=== PATIENT | female | born 1980 | race Caucasian/White ===

== ENCOUNTER → 2018-06-19 | Outpatient (CLI) | payer OTHER, MEDICARE | LOC: SLEEP 19:30 | PROVIDERS: ATTEND Family Medicine | DX: G47.33 Obstructive sleep apnea (adult) (pediatric) (principal) ==

== ENCOUNTER → 2018-08-30 | Outpatient (CLI) | payer OTHER, MEDICARE ==
--- NOTE | 2018-09-12 22:56 | Polysomnography ---
DATE OF STUDY: August 30, 2018 PHYSICIAN CANCELED. JOSE MIGUEL Certified in Sleep Medicine Job#: [id number] GE
--- NOTE | 2018-09-23 01:16 | Polysomnography ---
DATE OF STUDY: August 30, 2018 SPLIT-NIGHT POLYSOMNOGRAM REFERRING PHYSICIAN: Dr. Gadiel Turner HISTORY: This is a 38-year-old female with excessive daytime sleepiness and witnessed apneas. Patient has past medical history of diabetes, hyperlipidemia, schizophrenia, bipolar disorder, COPD, lumbar disk herniation, migraines, CKD. CURRENT MEDICATIONS: Quetiapine, bupropion, clonazepam, montelukast, Lasix, atorvastatin, topiramate, lamotrigine, Zanaflex, Tresiba. BMI is 53.3. [place] Sleepiness Scale score is 19. The patient presents for a diagnostic polysomnogram that is splint into a titration polysomnogram. FINDINGS: Polysomnogram revealed total sleep time of 144.5 minutes with sleep efficiency of 95.1% during diagnostic half of this study. Sleep onset latency was achieved in 6 minutes. REM sleep was not studied during diagnostic half, but stage N1, N2, and N3 were all present. The patient had intermittent snoring that was noted. The near entirety of diagnostic portion of this study was in the side position. A total of 63 hypopneas and 1 mixed apnea and 101 obstructive apneas were noted for an apnea-hypopnea index of 68.5 events per hour. The lowest oxygen saturation during this half was 52%. This study was split soon after discovering severe obstructive sleep apnea-hypopnea syndrome. CPAP was initiated at 4 cm of water pressure and incrementally increased to 13 cm of water pressure by 1 cm at a time. Due to patient intolerance of the higher CPAP pressure and due to arousals suspected to be respiratory related, BiPAP was initiated at 14/10 cm of water and incrementally increased to 18 cm of IPAP and 13 cm of EPAP delivered using a ResMed AirFit F10 full-face mask medium size, with heated humidifier. Sleep apnea was optimally treated at the final pressure setting of 18 cm of IPAP and 13 cm of EPAP where the apnea-hypopnea index was 0 events per hour and the lowest oxygen saturation was 91%. Of note, this was an excellent supine titration. REM sleep was studied on the pressure of 15/10 cm of water with very few events that did not destroy the consolidated sleep EEG. Towards the end of this night, some undulating pulse oximetry waveforms were noted with low normal saturations, but the sleep EEG construct was intact. Some periodic leg movements in sleep were also noted, but many of these appeared to be respiratory event-related limb movements. Single-lead EKG analysis demonstrated sinus rhythm mostly in the 80s, but was otherwise unremarkable. INTERPRETATION: This was an abnormal polysomnogram/split study due to presence of: 1. Severe obstructive sleep apnea. This is supported by oxygen desaturations, snoring, and increased apnea-hypopnea index. Multiple factors can be contributory such as obesity, thyroid disease, and structural/obstructive abnormalities in the upper airway. An evaluation and management of these factors associated with sleep apnea would be beneficial. 2. Positive airway pressure titration. This study included CPAP and BiPAP titration. The patient's sleep fragmentation, apneas, and desaturations greatly improved and thus a more consolidated sleep was achieved using BiPAP. We recommend BiPAP at an IPAP pressure of 18 cm of water and an EPAP pressure of 13 cm of water delivered using a medium ResMed AirFit F10 full-face mask and heated humidifier. 3. Sleepiness. The patient's [place] Sleepiness Scale score is 19 suggesting significant sleepiness. Clinical followup should ensure appropriate response of treatment is recommended. Medicines should be adjusted if needed. If sleepiness remains and consideration for a hypersomnia such as narcolepsy remains, then consideration for an overnight BiPAP study with next day multiple sleep latency testing can be considered. Clinical correlation is recommended. The patient should not sleep nor operate heavy machinery if she is at risk of falling asleep during these instances. 4. Periodic limb movements in sleep. Periodic limb movement index was measured at 88 limb movements per hour of sleep on this entire night. Periodic limb movements in sleep can be seen during positive airway pressure titration and may subside after compliant use of BiPAP. PLMD (PLMS with disorder) can be associated with or secondary to conditions such as restless leg syndrome, iron deficiency anemia, electrolyte imbalance such as hypomagnesemia, peripheral neuropathy, and use of medications. If associated with a clinical sleep disturbance or complaint of daytime fatigue after compliant use of BiPAP, further evaluation and management of these factors may be helpful. MD JOSE MIGUEL Parker Certified in Sleep Medicine Job#: [id number] DR JASON
== END ==
LOC: SLEEP 19:33
PROVIDERS: ATTEND Family Medicine
DX: G47.30 Sleep apnea, unspecified (principal)
CPT/HCPCS: 95811